=== PATIENT | female | born 1945 | race Caucasian/White ===

== ENCOUNTER 2017-06-08 09:38 | Outpatient (CLI) | payer MEDICARE, MEDICAID ==
[~2017-06-08 09:38] MED LIST: ASPI-974 PO; METO25TA6 PO
[2017-06-08 09:51] VITALS: BP 137/81
== END 2017-06-08 10:20 | disposition home or self-care (01) ==
LOC: ORTHO 09:38
PROVIDERS: ATTEND Nurse Practitioner Family
DX: S72.112D Displaced fracture of greater trochanter of left femur, subsequent encounter for closed fracture with routine healing (principal); M16.12 Unilateral primary osteoarthritis, left hip; I10 Essential (primary) hypertension; J44.9 Chronic obstructive pulmonary disease, unspecified; M19.079 Primary osteoarthritis, unspecified ankle and foot; Z86.73 Personal history of transient ischemic attack (TIA), and cerebral infarction without residual deficits; Z96.642 Presence of left artificial hip joint; X58.XXXD Exposure to other specified factors, subsequent encounter
CPT/HCPCS: 73502

== ENCOUNTER → 2017-07-15 | Outpatient (CLI) | payer MEDICARE, MEDICAID ==
[2017-07-15 10:26] VITALS: BP 127/74
== END ==
LOC: ORTHO 10:25
PROVIDERS: ATTEND Nurse Practitioner Family
DX: S72.115D Nondisplaced fracture of greater trochanter of left femur, subsequent encounter for closed fracture with routine healing (principal); M16.12 Unilateral primary osteoarthritis, left hip; Z96.652 Presence of left artificial knee joint
CPT/HCPCS: 73502

== ENCOUNTER 2020-06-03 07:58 | Outpatient (CLI) | payer MEDICARE, MEDICAID ==
[~2020-06-03] VITALS: Ht 185.4 cm; Wt 59.4 kg
[2020-06-03] MEDS ORDERED: metoprolol tartrate 1mg/ml inj IV PRN (09:10)
[2020-06-03] MEDS ORDERED: nitroGLYCERIN 0.4mg SUBLingual tab SL PRN (09:10)
[2020-06-03] MEDS ORDERED: regadenoson 0.4mg/5ml syringe IV ONE (09:10)
[2020-06-03] MEDS ORDERED: aminophylline 250mg/10ml inj. IV PRN (09:10)
== END 2020-06-03 23:59 | disposition home or self-care (01) ==
LOC: CARD DIAG 07:58
PROVIDERS: ATTEND Internal Medicine Interventional Cardiology
DX: Z01.810 Encounter for preprocedural cardiovascular examination (principal); I08.0 Rheumatic disorders of both mitral and aortic valves; I11.9 Hypertensive heart disease without heart failure
CPT/HCPCS: 93306

== ENCOUNTER 2020-09-13 07:26 | Outpatient (CLI) | payer MEDICARE, MEDICAID ==
[~2020-09-13 07:26] MED LIST changes: +LOP25T PO; -METO25TA6 PO
== END 2020-09-13 23:59 | disposition home or self-care (01) ==
LOC: RAD 07:26
PROVIDERS: ATTEND Internal Medicine Interventional Cardiology
DX: I11.9 Hypertensive heart disease without heart failure (principal); I34.2 Nonrheumatic mitral (valve) stenosis; Z01.810 Encounter for preprocedural cardiovascular examination

== ENCOUNTER 2020-09-19 07:26 | Outpatient (CLI) | payer MEDICARE, MEDICAID ==
[2020-09-19] VITALS (13 sets, daily range): BP systolic 125–150; BP diastolic 65–99
[~2020-09-19] VITALS: Ht 154.9 cm; Wt 52.3 kg
[2020-09-19] MEDS ORDERED: nitroGLYCERIN 0.4mg SUBLingual tab SL PRN (08:40)
[2020-09-19] MEDS ORDERED: metoprolol tartrate 1mg/ml inj IV PRN (08:40)
[2020-09-19] MEDS ORDERED: regadenoson 0.4mg/5ml syringe IV ONE (08:40)
[2020-09-19] MEDS ORDERED: atropine 0.1mg/ml 10ml syringe IV PRN (08:40)
[2020-09-19] MEDS ORDERED: aminophylline 250mg/10ml inj. IV PRN (08:40)
== END 2020-09-19 23:59 | disposition home or self-care (01) ==
LOC: RAD 07:26
PROVIDERS: ATTEND Internal Medicine Interventional Cardiology
DX: Z01.810 Encounter for preprocedural cardiovascular examination (principal); I11.9 Hypertensive heart disease without heart failure; I34.2 Nonrheumatic mitral (valve) stenosis
CPT/HCPCS: 78452; 93017; A9500; J0280; J2785